=== PATIENT | male | born 1980 | race Caucasian/White ===

== ENCOUNTER 2020-06-24 13:42 | Emergency (ER) | payer OTHER, SELFPAY ==
[2020-06-24 13:48] VITALS: BP 133/78; PULSE 96; RESP 20; TEMP 35.7; O2SAT 100
--- NOTE | 2020-06-24 14:31 | PC.NURSE ---
Patient walked out of ED without difficulty and in no distress at this time.
== END 2020-06-24 14:31 | disposition left against medical advice (07) ==
LOC: ANHED 14:41
DX: Z53.21 Procedure and treatment not carried out due to patient leaving prior to being seen by health care provider (principal)
CPT/HCPCS: 99199